=== PATIENT | female | born 1995 | race Two or more races ===

== ENCOUNTER → 2019-12-25 08:06 | Outpatient (BNVA) | payer OTHER, SELFPAY | PROVIDERS: Visit Provider Surgery | DX: E66.9 Obesity, unspecified (principal); Z68.38 Body mass index [BMI] 38.0-38.9, adult; Z71.3 Dietary counseling and surveillance | CPT/HCPCS: 99214 ==

== ENCOUNTER → 2020-02-02 07:56 | Outpatient (BNVA) | payer OTHER, SELFPAY | PROVIDERS: Visit Provider Surgery | DX: Z76.89 Persons encountering health services in other specified circumstances (principal) ==

== ENCOUNTER → 2020-03-22 08:04 | Outpatient (BNVA) | payer OTHER, SELFPAY | PROVIDERS: Visit Provider Surgery ==

== ENCOUNTER 2020-05-04 16:19 | Emergency (ER) | payer OTHER, SELFPAY ==
[2020-05-04 16:20] VITALS: BP 122/57; PULSE 69; RESP 16; TEMP 36.6; O2SAT 98; BMI 40.7
--- NOTE | 2020-05-04 19:35 | ED.FEMALEGU ---
HPI - Female Genitourinary General Chief complaint: Vaginal Bleeding Stated complaint: Vag bleed Time Seen by Provider: 05/04/20 17:28 Source: patient Mode of arrival: ambulatory Limitations: no limitations History of Present Illness HPI Narrative: 25 y/o female presenting with heavy and painful menstrual cycle that started yesterday. She reports her LMP was 1st week of April and was normal in duration and flow. She states her menses started yesterday and appeared to be normal. Today she started having much heavier bleeding and some cramping that she is not used to having with her periods. She has passed some small clots. She is changing her pad every hour today. She denies pain on one side more than the other. She denies chance of . She denies vaginal discharge, abdominal pain, fever, chills, nausea, vomiting, lightheadedness, dizziness or chest pain. She is not on oral contraceptives. MD elicited complaint: vaginal bleeding Pertinent past history: other (PCOS) Onset (ago): day(s) (1) Location of symptoms: vaginal Severity: moderate Female Urogenital Radiation: Non-Radiating Severity scale (1-10): 5 Quality of pain: cramping Consistency: intermittent Vaginal discharge: none Vaginal bleeding: heavy, clots and # pads per hour (1) Exacerbating factors: none Associated symptoms: denies other symptoms Treatment prior to arrival: none Sexual activity: Yes Patient : No Date of Last Menstrual Period: 04/02/20 Related Data Previous Rx's Medication Instructions Recorded pantoprazole 40 mg tablet,delayed 40 mg PO DAILY #30 tab 02/02/20 release norgestimate-ethinyl estradiol 1 tab PO DAILY #28 tab 05/04/20 [Sprintec (28)] Allergies Allergy/AdvReac Type Severity Reaction Status Date / Time No Known Allergies Allergy Unverified 11/16/19 19:49 [No Known Allergies*] Review of Systems Review of Systems: Constitutional: No Fever, No Chills Cardiovascular: No Chest Pain, No SOB Respiratory: No Cough, No Sputum Gastrointestinal: No Nausea, No Vomiting, No Diarrhea, No abdominal Pain Genitourinary: No Dysuria, No Urinary Frequency, No Hematuria, +vaginal bleeding Musculoskeletal: No joint pain, No Myalgias Skin: No Skin Lesions, No rash Neuro: No Weakness, No Numbness, No Dizziness, + Headache Psych: + Anxiety/Panic, No Depression Heme/Lymph: No Bruising PMFSH Past Medical History Medical History (Updated 05/04/20 @ 19:50 by TA Pollard) PCOS (polycystic ovarian syndrome) Surgical History (Updated 02/02/20 @ 10:03 by Sunil Cameron MD) History of sleeve gastrectomy Obesity Date of Last Menstrual Period: 04/02/20 Family History Family History (Updated 12/18/19 @ 11:25 by Jase [facility]) Father No problems noted. Mother Poor mental health Brother No problems noted. Sister No problems noted. Sister No problems noted. Sister No problems noted. Social History Social History (Updated 12/18/19 @ 11:37 by Jase Maria [facility]) Alcohol intake: never Smoking Status: Never smoker Advance Directives: No Advance Directives Information Provided: Yes Physical Exam Vital Signs: Vital Signs: Last Vital Signs Temp 97.8 F 05/04/20 16:20 Pulse 69 05/04/20 16:20 Resp 16 05/04/20 16:20 BP 122/57 L 05/04/20 16:20 Pulse Ox 98 05/04/20 16:20 Body Mass Index 40.7 Appearance: Alert. Oriented X3. No acute distress. Eyes: Pupils equal, round and reactive to light. ENT: Pharynx normal. Neck: Normal inspection. Neck supple. CVS: Normal heart rate and rhythm. Pulses normal. Respiratory: No respiratory distress. Breath sounds normal. Abdomen: Soft and nontender. +BS x4 Pelvic exam deferred Skin: Skin warm and dry. Normal skin color. Normal skin turgor. No rashes. Extremities: No lower extremity edema. Neuro: Oriented X 3. No motor deficit. No sensory deficit. Course Course Course Narrative: 25 y/o female presenting with heavy vaginal bleeding today in the setting of her known menses. She is not have symptoms of acute blood loss. She appears well. Will check basic blood work. She is deferring pelvic exam at this time. No concern for STI or PID. Urine is negative. Reevaluation(s) Reevaluation #1: Multiple attempts at blood draw but unsuccessful. Patient reports vaginal bleeding has slowed. She continues deny symptoms of acute blood loss anemia. Baseline hematocrit is 38. Comfortable with holding off on bloodwork and starting on OCP's for symptom management. She reports last [facility] appointment was over 1 year ago and she is due. She agrees to follow up this week. She will return to the ER if bleeding or pain worsens. Comfortable with discharge home. MDM - Female Genitourinary Differential Diagnosis Differential diagnosis: Likely dysmenorrhea Medical Records Attestation: I reviewed the patient's medical records. Lab Data Labs: Lab Results 05/04/20 05/04/20 Range/Units 20:24 20:24 Urine Color PINK Urine Appearance CLOUDY Urine pH 5.5 (5.0-8.0) Ur Specific [place] 1.025 (1.005-1.025) Urine Protein NEG (NEG-TRACE) MG/DL Urine Glucose (UA) NEG (NEG) MG/DL Urine Ketones NEG (NEG) MG/DL Urine Blood 3+ H (NEG) Urine Nitrite NEG (NEG) Ur Leukocyte Esterase NEG (NEG) Urine RBC 76-150 H (0) /HPF Urine WBC 0-2 (0-4) /HPF Ur Squamous Epith Cells 1+ /LPF Urine Bacteria TRACE /LPF Urine Test NEGATIVE (NEGATIVE) Discharge Plan Discharge Clinical Impression: Menorrhagia Qualifiers: Menorrhagia type: with regular cycle Qualified Code(s): N92.0 - Excessive and frequent menstruation with regular cycle Patient Disposition: Home, Self-Care Instructions: Menorrhagia (ED) Additional Instructions: Your test was negative. Your urine test did not show any evidence of infection. Given your history of PCOS, it is recommended you start oral contraceptive medication - this will help with your symptoms, including your bleeding. Recommend follow up with [facility] this week. Take Tylenol or Motrin as needed for cramping. If you develop worsening pain or bleeding come back to the ER for further evaluation. Prescriptions: New norgestimate-ethinyl estradiol [Sprintec (28)] 0.25-35 mg-mcg tablet 1 tab PO DAILY Qty: 28 RF: 0 No Action pantoprazole 40 mg tablet,delayed release (DR/EC) 40 mg PO DAILY Qty: 30 RF: 2 Referrals: Keven oDrman MD [Physician] - 2 days (menorrhagia)
[2020-05-04 20:00] VITALS: BP 127/69; PULSE 77; RESP 16; TEMP 36.9; O2SAT 96
[2020-05-04 20:38] LABS: Glucose Urine UA NEG (NEG); Leukocyte Esterase Urine NEG (NEG); Nitrite Urine NEG (NEG); PH 5.5 (5.0-8.0); Specific Gravity - Urine 1.025 (1.005-1.025); Urine Blood 3+ (NEG); Urine Ketones NEG (NEG); Urine Protein NEG (NEG-TRACE)
[2020-05-04 20:40] LABS: Appearance Urine CLOUDY; Color Urine PINK
[2020-05-04 20:41] LABS: UPreg QC Valid YES; Urine Pregnancy NEGATIVE (NEGATIVE)
[2020-05-04 20:49] LABS: Bacteria Urine TRACE /LPF; Squamous Epithelial Cell Urine 1+ /LPF; WBC Urine 0-2 /HPF (0-4)
== END 2020-05-04 22:07 | disposition home or self-care (01) ==
PROVIDERS: Physician Assistant; Emergency Provider Internal Medicine
DX: N92.0 Excessive and frequent menstruation with regular cycle (principal); E28.2 Polycystic ovarian syndrome; L24.9 Irritant contact dermatitis, unspecified cause
CPT/HCPCS: 81001; 81025; 99283; 99284

== ENCOUNTER 2020-10-03 18:40 | Emergency (ER) | payer OTHER, SELFPAY ==
--- NOTE | ~2020-10-03 | XR_ITS ---
EXAMINATION: XR FOOT, LEFT CLINICAL INFORMATION: Pain and swelling COMPARISON: None TECHNIQUE: AP, lateral, and oblique views of the left foot. FINDINGS: The bones and soft tissues are normal. No fracture. Alignment is anatomic. Joint spaces are maintained. XR/XR foot LT min 3V IMPRESSION: Normal left foot.
[2020-10-03 18:42] VITALS: BP 137/64; PULSE 93; RESP 16; TEMP 36.6; O2SAT 100; BMI 36.6
--- NOTE | 2020-10-03 20:18 | PC.NURSE ---
NO POST OP SHOE AVAILABLE IN PT SIZE SWITCHED TO AIMEE WRAP PER MEGHANN GURROLA.
--- NOTE | 2020-10-03 21:20 | ED.LOWEXIN ---
HPI - Extremity Injury (Lower) General Chief Complaint: Extremity Injury, Lower Stated Complaint: foot pain Time Seen by Provider: 10/03/20 19:34 Source: patient Mode of arrival: ambulatory Limitations: no limitations History of Present Illness HPI Narrative: 25-year-old female previously healthy here with complaints of left foot pains after working at the gym yesterday. Patient tells me she went to the gym yesterday and did some walking and some weightlifting. Today when she woke up she felt like her left foot was sore and swollen and she feels like she has some decreased sensation over the top of her foot. She cannot recall any specific injury. She denies any warmth, redness, fevers or chills. Related Data Previous Rx's Medication Instructions Recorded pantoprazole 40 mg tablet,delayed 40 mg PO DAILY #30 tab 02/02/20 release hydrocortisone 1 % topical cream 1 appl TOPICAL QID PRN #28.35 g 05/04/20 norgestimate 0.25 mg-ethinyl 1 tab PO DAILY #28 tab 05/04/20 estradiol 35 mcg tablet (Sprintec (28)) Allergies Allergy/AdvReac Type Severity Reaction Status Date / Time latex Allergy Rash Verified 10/03/20 18:45 Review of Systems Review of Systems: Yes all other systems are reviewed and are negative Constitutional: Constitutional: Reports no additional constitutional complaints, Denies body ache(s), Denies chills, Denies fever(s), Denies headache(s) and Denies weakness Eyes: Eyes: Reports no additional eye complaints and Denies change in vision ENT: Reports system reviewed and no additional complaints, except as documented, Denies dizziness, Denies headache(s), Denies nasal congestion, Denies nasal discharge and Denies neck pain Cardiovascular: Cardiovascular: Reports no additional cardiovascular complaints, Denies chest pain, Denies leg edema and Denies dyspnea Respiratory: Respiratory: Reports no additional respiratory complaints, Denies cough and Denies dyspnea Gastrointestinal: Gastrointestinal: Reports no additional gastrointestinal complaints, Denies abdominal pain, Denies diarrhea, Denies nausea and Denies vomiting Genitourinary: Genitourinary: Reports no additional female genitourinary complaints and Denies urinary incontinence Musculoskeletal: Musculoskeletal: Reports no additional musculoskeletal complaints, Denies back pain, Reports arthralgias, Denies joint swelling, Denies neck pain, Reports numbness and Denies tingling Integumentary/Breasts: Skin/Breast: Reports system reviewed and no additional complaints, except as docu and Denies rash Neurologic: Reports system reviewed and no additional complaints, except as documented, Denies Abnormal speech present, Denies dizziness, Denies headache(s), Reports numbness, Denies tingling and Denies weakness PMFSH Past Medical History Attestation statement: The following information was validated with the patient. Source: old records reviewed and nursing notes reviewed Medical History PCOS (polycystic ovarian syndrome) Surgical History History of sleeve gastrectomy Obesity Family History Family History Father No problems noted. Mother Poor mental health Brother No problems noted. Sister No problems noted. Sister No problems noted. Sister No problems noted. Social History Social History Alcohol intake: never Advance Directives: No Advance Directives Information Provided: No Physical Exam Vital Signs: Vital Signs: Last Vital Signs Temp 97.9 F 10/03/20 18:42 Pulse 93 10/03/20 18:42 Resp 16 10/03/20 18:42 BP 137/64 10/03/20 18:42 Pulse Ox 100 10/03/20 18:42 Body Mass Index 36.6 Const: General: cooperative, healthy appearing, comfortable and no acute distress Orientation/consciousness: patient oriented x3 Limitations: no limitations HENMT: Head: Yes normal to inspection Ears: hearing grossly normal bilaterally General nose exam: Normal external nose present Face and sinus: Yes normal facial exam Mouth: Normal oral and palatal mucosa present Throat: Yes posterior oropharynx normal Eyes: General: appearance normal, both eyes and all related structures Pupils: Equal, round and reactive pupils present Neck: Neck: Yes normal visual inspection Chest: Chest palpation & inspection: normal inspection of the chest Resp: Effort & Inspection: normal respiratory effort Auscultation: clear to auscultation bilaterally Cardio: Rate: regular rate Rhythm: regular rhythm Peripheral pulses: Peripheral pulses 2+ throughout GI: Inspection: Yes normal to inspection Palpation (GI): Soft to palpation and nontender Auscultation: normal bowel sounds Back/Spine/Pelvis: Thoracic/Lumbar Spine: thoracic and lumbar spine normal to inspection Skin: General skin exam: no rashes or lesions noted Neuro: General: patient oriented x3, no focal motor deficits and normal sensation to monofilament Cranial nerves: Yes Equal, round and reactive pupils present Cognition (Neuro): normal cognition Speech: No Abnormal speech present Gait exam (Neuro): Normal gait present Motor exam (neuro): 5/5 motor strength present throughout Extrem: Other: Over the distal dorsal foot at the base of the 2nd digit there is some mild tenderness with mild swelling but there is no warmth or redness. The patient is reporting some decreased sensation but is able to feel my hands touching her. Full range of motion. Palpable pulses. [place] warm and dry. General: Yes normal to inspection Course Course Course Narrative: Left foot pain with some associated sensation change since working out at the gym yesterday. Exam is benign with the exception of some mild swelling and discomfort over the dorsal aspect of the distal foot the base of the 2nd digit. Will check x-rays. 921-x-ray show no acute finding. Likely sprain or overuse injury. Recommended rest, ice, compression and elevation. Reviewed worrisome signs and symptoms and when to return to the emergency department. Comfortable discharge home. MDM - Extremity Injury (Lower) Medical Records Attestation: I reviewed the patient's medical records. Lab Data Attestation: I reviewed the patient's lab results. Imaging Data foot x-ray: Attestation: I personally reviewed and interpreted this imaging study as follows: Radiologist's impression: [address] [address] XRay Report Signed Patient: Giovana Medellin MR#: [id number] : 1995 Acct:[id number] Age/Sex: 25 / F ADM Date: 10/03/20 Loc: HO.ED Attending Dr: Ordering Physician: Generic ED Physician Date of Service: 10/03/20 Procedure(s): XR foot LT min 3V Accession Number(s): [id number] cc: Generic ED Physician~ EXAMINATION: XR FOOT, LEFT CLINICAL INFORMATION: Pain and swelling? COMPARISON: None? TECHNIQUE: AP, lateral, and oblique views of the left foot. FINDINGS: The bones and soft tissues are normal. No fracture. Alignment is anatomic. Joint spaces are maintained.? XR/XR foot LT min 3V IMPRESSION: Normal left foot. Procedures Procedure Narrative Procedure Narrative: A setup, crutches Discharge Plan Discharge Clinical Impression: Other sprain of left foot, initial encounter Patient Disposition: Home, Self-Care Instructions: Foot Sprain (ED), Post Surgical Shoe (ED) Additional Instructions: Ice, elevation, rest Uses shoe and crutches for comfort Follow-up with her doctor in several days for persistent pain Ibuprofen for pain as needed Prescriptions: No Action norgestimate-ethinyl estradiol [Sprintec (28)] 0.25-35 mg-mcg tablet 1 tab PO DAILY Qty: 28 RF: 0 hydrocortisone 1 % cream 1 appl topical QID PRN (Reason: itching) Qty: 28.35 RF: 0 pantoprazole 40 mg tablet,delayed release (DR/EC) 40 mg PO DAILY Qty: 30 RF: 2 Referrals: Physician,Unknown [Primary Care Provider] - 2 days Stand Alone Forms: Work/School Release Interventions: ED Discharge Assessment Last Done: 10/03/20 20:40 Discharge Date/Time: 10/03/20 20:45
== END 2020-10-03 20:43 | disposition home or self-care (01) ==
PROVIDERS: Emergency Provider Emergency Medicine
DX: S93.602A Unspecified sprain of left foot, initial encounter (principal); M79.672 Pain in left foot; X50.0XXA Overexertion from strenuous movement or load, initial encounter; Y93.9 Activity, unspecified; Y92.9 Unspecified place or not applicable; Y99.9 Unspecified external cause status; Z79.899 Other long term (current) drug therapy
CPT/HCPCS: 73630; 99284

== ENCOUNTER → 2021-04-08 08:47 | Outpatient (BNVA) | payer OTHER, SELFPAY | PROVIDERS: Referring Provider Surgery; Visit Provider Physician Assistant Surgical ==

== ENCOUNTER 2021-06-13 06:27 | Outpatient (REF) | payer OTHER, SELFPAY ==
[2021-06-13 07:16] LABS: MANUAL DIFF FLAG NO
[2021-06-13 07:29] LABS: Basophils Absolute Auto 0.1 X10*3/uL (0.0-0.2); Basophils Percent Auto 0.7 % (0-2); Eosinophils Absolute Auto 0.2 X10*3/uL (0.0-0.4); Eosinophils Percent Auto 3.2 % (0-4); Hematocrit 36.7 % (37.0-47.0); Hemoglobin 12.1 g/dl (12.0-16.0); Imm Gran Abs Auto 0.03 X10*3/uL (0.00-0.03); Imm Gran Pct Auto 0.4 % (0.0-0.4); Lymphocytes Absolute Auto 1.8 X10*3/uL (1.2-4.9); Lymphocytes Percent Auto 23.6 % (20-40); Mean Corpuscular Hemoglobin 29.7 pg (27.0-33.0); Mean Platelet Volume 9.4 fL (9.4-12.3); Monocytes Absolute Auto 0.6 X10*3/uL (0.1-1.2); Monocytes Percent Auto 7.7 % (2-11); Neutrophils Absolute Auto 4.8 x10*3/uL (2.0-8.3); Neutrophils Percent Auto 64.4 % (45-73); Platelet Count 315 X10*3/uL (160-400); Red Blood Count 4.08 X10*6/uL (4.20-5.50); Red Cell Distribution Width 12.3 % (11.0-16.0); White Blood Count 7.5 X10*3/uL (4.8-10.8)
[2021-06-13 07:54] LABS: Estimated Average Glucose 100 mg/dL; Hemoglobin A1c % 5.1 %
[2021-06-13 07:58] LABS: Anion Gap 12 (12-20); Blood Urea Nitrogen 14 mg/dL (9-16); C Reactive Protein 0.26 mg/dL (< or = 0.50); Calcium 9.5 mg/dL (8.4-10.2); Carbon Dioxide 26 mmol/L (22-29); Chloride 104 mmol/L (96-108); Cholesterol 172 mg/dL; Estimated Glomerular Filt Rate > 60; Glucose Random 89 mg/dL (60-115); HDL Cholesterol 37 mg/dL; Iron 122 mcg/dL (30-160); LDL Cholesterol Calculated 111 mg/dl; Percent Iron Saturation 34 % (15-50); Potassium 4.3 mmol/L (3.3-5.1); Sodium 138 mmol/L (135-145); Total Iron Binding Capacity 364 mcg/dL (228-428); Triglycerides 122 mg/dL; Unsaturated Iron Binding 242 ug/dL
[2021-06-13 08:08] LABS: Ferritin 29 ng/mL (10-122); TSH reflex Free T4 1.54 uIU/mL (0.32-4.0); Vitamin D 25-OH Total 14.6 ng/mL (>30)
[2021-06-13 08:26] LABS: Folate 15.5 ng/mL (> or = 4.0); Vitamin B12 422 pg/mL (200-900)
[2021-06-16 13:56] LABS: Calcium (PTHI) 9.4 mg/dL (8.6-10.2); PTHI 62 pg/mL (16-77)
[2021-06-17 16:06] LABS: Zinc 73 mcg/dL (60-130)
[2021-06-18 08:56] LABS: Vitamin A 44 mcg/dL (38-98)
[2021-06-19 17:16] LABS: Vitamin B1 12 nmol/L (8-30)
== END 2021-06-13 06:28 | disposition home or self-care (01) ==
LOC: HO.LAB 06:27
PROVIDERS: PCP Internal Medicine; Visit Provider Physician Assistant Surgical
DX: E66.9 Obesity, unspecified (principal)
CPT/HCPCS: 36415; 80048; 80061; 82306; 82607; 82728; 82746; 83036; 83540; 83970; 84425; 84443; 84590; 84630; 85025; 86140

== ENCOUNTER → 2021-06-24 08:05 | Outpatient (BNVA) | payer OTHER, SELFPAY | PROVIDERS: Visit Provider Physician Assistant Surgical | DX: Z13.89 Encounter for screening for other disorder (principal) ==

== ENCOUNTER 2022-06-22 18:37 | Emergency (ER) | payer OTHER, SELFPAY ==
--- NOTE | ~2022-06-22 | US_ITS ---
EXAMINATION: US OBSTETRICAL ULTRASOUND CLINICAL INFORMATION: 6 weeks gestation. Vaginal spotting. Lower abdominal pain. COMPARISON: None available.. LMP: 10/13/2022. Gestational age by maternal dates is 5 weeks 5 days. Estimated date of delivery by maternal dates is 02/17/2023. TECHNIQUE: Ultrasound of the maternal pelvis is performed using transabdominal and transvaginal transducers. Transvaginal imaging is performed due to inadequate visualization transabdominally. M-mode Doppler is also performed. FINDINGS: There is a single intrauterine gestational sac without yolk sac or pole identified.. There is no significant subchorionic hemorrhage or hematoma. Mean sac diameter: 0.39 cm (4 weeks 6 days). MATERNAL ADNEXA: The right maternal ovary measures 5.2 x 2.8 x 3.1 cm. 1.8 cm corpus luteum noted. The left maternal ovary measures 2.2 x 2.1 x 2.3 cm. There is no significant maternal adnexal mass. No maternal pelvic ascites. US/US OB pelvic and transvaginal IMPRESSION: Intrauterine gestational sac measuring at 4 weeks 6 days gestation. No yolk sac or pole identified. This could be secondary to the early stage of . Close follow-up recommended. No ectopic identified.
[2022-06-22 19:45] VITALS: BP 143/72; PULSE 91; RESP 20; TEMP 36.6; O2SAT 99; BMI 25.8
--- NOTE | 2022-06-22 19:46 | ED_ITS ---
HPI - Female Genitourinary General Chief complaint: OB <TA Lockhart - Last Filed: 06/22/22 19:50> Stated complaint: vaginal spotting,cramping <TA Lockhart - Last Filed: 06/22/22 19:50> Time Seen by Provider: 06/23/22 00:41 <TA Lockhart - Last Filed: 06/22/22 19:50> Source: patient <Álvaro Lopez MD - Last Filed: 06/23/22 01:58> Mode of arrival: ambulatory <Álvaro Lopez MD - Last Filed: 06/23/22 01:58> Limitations: no limitations <Álvaro Lopez MD - Last Filed: 06/23/22 01:58> History of Present Illness HPI Narrative: Patient thinks she is 5 weeks , LMP 3/15. Today she has been spotting and having some pain. G2 1 miscarriage. <Álvaro Lopez MD - Last Filed: 06/23/22 01:58> MD elicited complaint: vaginal bleeding <Álvaro Lopez MD - Last Filed: 06/23/22 01:58> Severity: mild <Álvaro Lopez MD - Last Filed: 06/23/22 01:58> Related Data Home medications: Home Medications Medication Instructions Recorded Confirmed Celebrate Walt+D PO BID 06/24/21 06/24/21 celebrate bariatric MVI PO DAILY 06/24/21 06/24/21 <TA Lockhart - Last Filed: 06/22/22 19:50> Allergies/Adverse reactions: Allergies Allergy/AdvReac Type Severity Reaction Status Date / Time latex Allergy Rash Verified 10/03/20 18:45 <TA Lockhart - Last Filed: 06/22/22 19:50> Review of Systems Review of Systems: Yes all other systems are reviewed and are negative <Álvaro Lopez MD - Last Filed: 06/23/22 01:58> Genitourinary: Genitourinary: Reports abnormal vaginal bleeding <Álvaro Lopez MD - Last Filed: 06/23/22 01:58> Neurologic: Denies Sensory deficit (Neuro) <Álvaro Lopez MD - Last Filed: 06/23/22 01:58> [facility] Past Medical History Medical History: Medical History PCOS (polycystic ovarian syndrome) <TA Lockhart - Last Filed: 06/22/22 19:50> Surgical History: Surgical History History of sleeve gastrectomy Obesity <TA Lockhart - Last Filed: 06/22/22 19:50> Family History Family History: Family History Father No problems noted. Mother Poor mental health Brother No problems noted. Sister No problems noted. Sister No problems noted. Sister No problems noted. <TA Lockhart - Last Filed: 06/22/22 19:50> Social History Social History: Social History Alcohol intake: never Advance Directives: No Advance Directives Information Provided: Yes <TA Lockhart - Last Filed: 06/22/22 19:50> Physical Exam Vital Signs: Vital Signs: Last Vital Signs Temp 97.8 F 06/22/22 19:45 Pulse 91 06/22/22 19:45 Resp 20 06/22/22 19:45 BP 143/72 H 06/22/22 19:45 Pulse Ox 99 06/22/22 19:45 O2 Del Method Room Air 06/22/22 19:45 BMI result Body Mass Index 25.8 <TA Lockhart - Last Filed: 06/22/22 19:50> Vital Signs: Last Vital Signs Temp 97.8 F 06/22/22 19:45 Pulse 91 06/22/22 19:45 Resp 20 06/22/22 19:45 BP 143/72 H 06/22/22 19:45 Pulse Ox 99 06/22/22 19:45 O2 Del Method Room Air 06/22/22 19:45 BMI result Body Mass Index 25.8 <Álvaro Lopez MD - Last Filed: 06/23/22 01:58> Const: Nutritional Appearance: obese <Álvaro Lopez MD - Last Filed: 06/23/22 01:58> Orientation/consciousness: oriented to person and patient oriented x3 <Álvaro Lopez MD - Last Filed: 06/23/22 01:58> Limitations: no limitations <Álvaro Lopez MD - Last Filed: 06/23/22 01:58> HEENT: Head: Yes normal to inspection <Álvaro Lopez MD - Last Filed: 06/23/22 01:58> Ears: external ears normal <Álvaro Lopez MD - Last Filed: 06/23/22 01:58> General nose exam: Normal external nose present <Álvaro Lopez MD - Last Filed: 06/23/22 01:58> Mouth: Normal oral and palatal mucosa present and oropharynx normal <Álvaro Lopez MD - Last Filed: 06/23/22 01:58> Throat: Yes posterior oropharynx normal <Álvaro Lopez MD - Last Filed: 06/23/22 01:58> Eyes: General: appearance normal, both eyes and all related structures <Álvaro Lopez MD - Last Filed: 06/23/22 01:58> Neck: Other: supple <Álvaro Lopez MD - Last Filed: 06/23/22 01:58> Neck: Yes normal visual inspection <Álvaro Lopez MD - Last Filed: 06/23/22 01:58> Chest: Chest palpation & inspection: normal inspection of the chest <Álvaro Lopez MD - Last Filed: 06/23/22 01:58> Resp: Auscultation: clear to auscultation bilaterally <Álvaro Lopez MD - Last Filed: 06/23/22 01:58> Cardio: Jugular venous distension: no JVD <Álvaro Lopez MD - Last Filed: 06/23/22 01:58> Rate: regular rate <Álvaro Lopez MD - Last Filed: 06/23/22 01:58> Rhythm: regular rhythm <MD Rangel Humphrey Last Filed: 06/23/22 01:58> Heart sounds: S1 normal heart sound present and S2 normal heart sound present <MD Rangel Humphrey Last Filed: 06/23/22 01:58> GI: Inspection: Yes normal to inspection <Álvaro Lopez MD - Last Filed: 06/23/22 01:58> Palpation (GI): Soft to palpation, nontender and No hepatosplenomegaly present <Álvaro Lopez MD - Last Filed: 06/23/22 01:58> Auscultation: normal bowel sounds <Álvaro Lopez MD - Last Filed: 06/23/22 01:58> : General: Yes no CVA tenderness <Álvaro Lopez MD - Last Filed: 06/23/22 01:58> Back/Spine/Pelvis: Back: no CVA tenderness <Álvaro Lopez MD - Last Filed: 06/23/22 01:58> Skin: General skin exam: no rashes or lesions noted <Álvaro Lopez MD - Last Filed: 06/23/22 01:58> Neuro: General: oriented to person and patient oriented x3 <Álvaro Lopez MD - Last Filed: 06/23/22 01:58> Cranial nerves: Yes CN's II-XII intact bilaterally <Álvaro Lopez MD - Last Filed: 06/23/22 01:58> Motor exam (neuro): 5/5 motor strength present throughout <Álvaro Lopez MD - Last Filed: 06/23/22 01:58> Sensory Exam: No Sensory deficit (Neuro) <Álvaro Lopez MD - Last Filed: 06/23/22 01:58> Extrem: General: Yes normal to inspection <Álvaro Lopez MD - Last Filed: 06/23/22 01:58> Psych: Appearance: grossly normal <Álvaro Lopez MD - Last Filed: 06/23/22 01:58> Course Course Course Narrative: RME: 27yo F w/PMHx PCOS, @6 weeks gestation, c/o lower abdominal cramping, nausea & brown spotting when wiping since this morning. LMP 05/13/22. denies vomiting, dysuria Labs, UA, ABO, Pelvic US ordered Full HPI, ROS and PE to be performed by primary ED provider. <TA Lockhart - Last Filed: 06/22/22 19:50> Reevaluation(s) Reevaluation #1: patient has had BHCG quant that has been doubling appropriately and an early IUP. will discharge with threatened <Álvaro Lopez MD - Last Filed: 06/23/22 01:58> Time: 01:55 <Álvaro Lopez MD - Last Filed: 06/23/22 01:58> Medical Decision Making Differential Diagnosis Differential Diagnoses: The differential diagnosis associated with the presentation includes (, miscarriage, ectopic , uti were all considered) <Álvaro Lopez MD - Last Filed: 06/23/22 01:58> Admission/Observation Consideration of admission/observation: Escalation of care including admission/observation considered (Early pr egnancy with pain and spotting admission was considered if patient had ectopic ) <Álvaro Lopez MD - Last Filed: 06/23/22 01:58> Lab Data MDM Lab Attestation statement: I reviewed the patient's lab results. <Álvaro Lopez MD - Last Filed: 06/23/22 01:58> Result Diagrams: 06/22/22 22:08 06/22/22 22:08 <TA Lockhart - Last Filed: 06/22/22 19:50> Labs: Lab Results 06/22/22 06/22/22 06/22/22 Range/Units 21:59 22:08 22:08 WBC 14.0 H (4.8-10.8) X10*3/uL RBC 4.38 (4.20-5.50) X10*6/uL Hgb 13.3 (12.0-16.0) g/dl Hct 38.9 (37.0-47.0) % MCV 88.8 (80.0-98.0) fL MCH 30.4 (27.0-33.0) pg MCHC 34.2 (31.0-35.0) g/dl RDW 12.7 (11.0-16.0) % Plt Count 349 (160-400) X10*3/uL MPV 8.8 L (9.4-12.3) fL Immature Gran % (Auto) 0.6 H (0.0-0.4) % Neut % (Auto) 72.4 (45-73) % Lymph % (Auto) 17.6 L (20-40) % [place] % (Auto) 7.4 (2-11) % Eos % (Auto) 1.5 (0-4) % Baso % (Auto) 0.5 (0-2) % Lymph # (Auto) 2.5 (1.2-4.9) X10*3/uL [place] # (Auto) 1.0 (0.1-1.2) X10*3/uL Eos # (Auto) 0.2 (0.0-0.4) X10*3/uL Baso # (Auto) 0.1 (0.0-0.2) X10*3/uL Abs Immat Gran (auto) 0.08 H (0.00-0.03) X10*3/uL Absolute Neuts (auto) 10.1 H (2.0-8.3) x10*3/uL Absolute Nucleated RBC 0.000 (0.0-0.012) X10*3/uL Nucleated RBC % (auto) 0.0 (0.0-0.2) /100WBC Sodium 139 (135-145) mmol/L Potassium 4.5 (3.3-5.1) mmol/L Chloride 109 H (96-108) mmol/L Carbon Dioxide 23 (22-29) mmol/L Anion Gap 12 (12-20) BUN 12 (9-16) mg/dL Creatinine 0.71 (0.5-1.4) mg/dL Estim Creat Clear Calc 125.6 Estimated GFR > 60 Random Glucose 82 (60-115) mg/dL Calcium 9.3 (8.4-10.2) mg/dL Total Bilirubin 0.2 (0.0-1.0) mg/dL Direct Bilirubin < 0.2 (0.0-0.5) mg/dL AST 21 (5-31) U/L ALT 33 H (0-31) U/L Alkaline Phosphatase 43 (39-117) U/L Total Protein 7.0 (6.5-8.0) g/dL Albumin 4.5 (3.5-5.0) g/dL Lipase 34 (8-78) U/L Beta HCG, Quant 1624 mIU/mL Urine Color Urine Appearance Urine pH (5.0-9.0) Ur Specific [place] (1.005-1.025) Urine Protein (Neg-Trace) mg/dL Urine Glucose (UA) (Negative) mg/dL Urine Ketones (Negative) mg/dL Urine Blood (Negative) Urine Nitrite (Negative) Ur Leukocyte Esterase (Negative) Blood Type A Positive 06/23/22 Range/Units 01:41 WBC (4.8-10.8) X10*3/uL RBC (4.20-5.50) X10*6/uL Hgb (12.0-16.0) g/dl Hct (37.0-47.0) % MCV (80.0-98.0) fL MCH (27.0-33.0) pg MCHC (31.0-35.0) g/dl RDW (11.0-16.0) % Plt Count (160-400) X10*3/uL MPV (9.4-12.3) fL Immature Gran % (Auto) (0.0-0.4) % Neut % (Auto) (45-73) % Lymph % (Auto) (20-40) % [place] % (Auto) (2-11) % Eos % (Auto) (0-4) % Baso % (Auto) (0-2) % Lymph # (Auto) (1.2-4.9) X10*3/uL [place] # (Auto) (0.1-1.2) X10*3/uL Eos # (Auto) (0.0-0.4) X10*3/uL Baso # (Auto) (0.0-0.2) X10*3/uL Abs Immat Gran (auto) (0.00-0.03) X10*3/uL Absolute Neuts (auto) (2.0-8.3) x10*3/uL Absolute Nucleated RBC (0.0-0.012) X10*3/uL Nucleated RBC % (auto) (0.0-0.2) /100WBC Sodium (135-145) mmol/L Potassium (3.3-5.1) mmol/L Chloride (96-108) mmol/L Carbon Dioxide (22-29) mmol/L Anion Gap (12-20) BUN (9-16) mg/dL Creatinine (0.5-1.4) mg/dL Estim Creat Clear Calc Estimated GFR Random Glucose (60-115) mg/dL Calcium (8.4-10.2) mg/dL Total Bilirubin (0.0-1.0) mg/dL Direct Bilirubin (0.0-0.5) mg/dL AST (5-31) U/L ALT (0-31) U/L Alkaline Phosphatase (39-117) U/L Total Protein (6.5-8.0) g/dL Albumin (3.5-5.0) g/dL Lipase (8-78) U/L Beta HCG, Quant mIU/mL Urine Color Yellow Urine Appearance Clear Urine pH 5.5 (5.0-9.0) Ur Specific [place] >= 1.030 H (1.005-1.025) Urine Protein Negative (Neg-Trace) mg/dL Urine Glucose (UA) Negative (Negative) mg/dL Urine Ketones Trace (Negative) mg/dL Urine Blood Trace H (Negative) Urine Nitrite Negative (Negative) Ur Leukocyte Esterase Negative (Negative) Blood Type <TA Lockhart - Last Filed: 06/22/22 19:50> Lab Results 06/22/22 06/22/22 06/22/22 Range/Units 21:59 22:08 22:08 WBC 14.0 H (4.8-10.8) X10*3/uL RBC 4.38 (4.20-5.50) X10*6/uL Hgb 13.3 (12.0-16.0) g/dl Hct 38.9 (37.0-47.0) % MCV 88.8 (80.0-98.0) fL MCH 30.4 (27.0-33.0) pg MCHC 34.2 (31.0-35.0) g/dl RDW 12.7 (11.0-16.0) % Plt Count 349 (160-400) X10*3/uL MPV 8.8 L (9.4-12.3) fL Immature Gran % (Auto) 0.6 H (0.0-0.4) % Neut % (Auto) 72.4 (45-73) % Lymph % (Auto) 17.6 L (20-40) % [place] % (Auto) 7.4 (2-11) % Eos % (Auto) 1.5 (0-4) % Baso % (Auto) 0.5 (0-2) % Lymph # (Auto) 2.5 (1.2-4.9) X10*3/uL [place] # (Auto) 1.0 (0.1-1.2) X10*3/uL Eos # (Auto) 0.2 (0.0-0.4) X10*3/uL Baso # (Auto) 0.1 (0.0-0.2) X10*3/uL Abs Immat Gran (auto) 0.08 H (0.00-0.03) X10*3/uL Absolute Neuts (auto) 10.1 H (2.0-8.3) x10*3/uL Absolute Nucleated RBC 0.000 (0.0-0.012) X10*3/uL Nucleated RBC % (auto) 0.0 (0.0-0.2) /100WBC Sodium 139 (135-145) mmol/L Potassium 4.5 (3.3-5.1) mmol/L Chloride 109 H (96-108) mmol/L Carbon Dioxide 23 (22-29) mmol/L Anion Gap 12 (12-20) BUN 12 (9-16) mg/dL Creatinine 0.71 (0.5-1.4) mg/dL Estim Creat Clear Calc 125.6 Estimated GFR > 60 Random Glucose 82 (60-115) mg/dL Calcium 9.3 (8.4-10.2) mg/dL Total Bilirubin 0.2 (0.0-1.0) mg/dL Direct Bilirubin < 0.2 (0.0-0.5) mg/dL AST 21 (5-31) U/L ALT 33 H (0-31) U/L Alkaline Phosphatase 43 (39-117) U/L Total Protein 7.0 (6.5-8.0) g/dL Albumin 4.5 (3.5-5.0) g/dL Lipase 34 (8-78) U/L Beta HCG, Quant 1624 mIU/mL Urine Color Urine Appearance Urine pH (5.0-9.0) Ur Specific [place] (1.005-1.025) Urine Protein (Neg-Trace) mg/dL Urine Glucose (UA) (Negative) mg/dL Urine Ketones (Negative) mg/dL Urine Blood (Negative) Urine Nitrite (Negative) Ur Leukocyte Esterase (Negative) Blood Type A Positive 06/23/22 Range/Units 01:41 WBC (4.8-10.8) X10*3/uL RBC (4.20-5.50) X10*6/uL Hgb (12.0-16.0) g/dl Hct (37.0-47.0) % MCV (80.0-98.0) fL MCH (27.0-33.0) pg MCHC (31.0-35.0) g/dl RDW (11.0-16.0) % Plt Count (160-400) X10*3/uL MPV (9.4-12.3) fL Immature Gran % (Auto) (0.0-0.4) % Neut % (Auto) (45-73) % Lymph % (Auto) (20-40) % [place] % (Auto) (2-11) % Eos % (Auto) (0-4) % Baso % (Auto) (0-2) % Lymph # (Auto) (1.2-4.9) X10*3/uL [place] # (Auto) (0.1-1.2) X10*3/uL Eos # (Auto) (0.0-0.4) X10*3/uL Baso # (Auto) (0.0-0.2) X10*3/uL Abs Immat Gran (auto) (0.00-0.03) X10*3/uL Absolute Neuts (auto) (2.0-8.3) x10*3/uL Absolute Nucleated RBC (0.0-0.012) X10*3/uL Nucleated RBC % (auto) (0.0-0.2) /100WBC Sodium (135-145) mmol/L Potassium (3.3-5.1) mmol/L Chloride (96-108) mmol/L Carbon Dioxide (22-29) mmol/L Anion Gap (12-20) BUN (9-16) mg/dL Creatinine (0.5-1.4) mg/dL Estim Creat Clear Calc Estimated GFR Random Glucose (60-115) mg/dL Calcium (8.4-10.2) mg/dL Total Bilirubin (0.0-1.0) mg/dL Direct Bilirubin (0.0-0.5) mg/dL AST (5-31) U/L ALT (0-31) U/L Alkaline Phosphatase (39-117) U/L Total Protein (6.5-8.0) g/dL Albumin (3.5-5.0) g/dL Lipase (8-78) U/L Beta HCG, Quant mIU/mL Urine Color Yellow Urine Appearance Clear Urine pH 5.5 (5.0-9.0) Ur Specific [place] >= 1.030 H (1.005-1.025) Urine Protein Negative (Neg-Trace) mg/dL Urine Glucose (UA) Negative (Negative) mg/dL Urine Ketones Trace (Negative) mg/dL Urine Blood Trace H (Negative) Urine Nitrite Negative (Negative) Ur Leukocyte Esterase Negative (Negative) Blood Type <Álvaro Lopez MD - Last Filed: 06/23/22 01:58> Radiology Impression Discussion of test interpretation with radiology: I have reviewed the radiologist's reading. (IUP) <Álvaro Lopez MD - Last Filed: 06/23/22 01:58> Independent Historian Clinical information obtained from an independent historian. History obtained from or confirmed by: Spouse <Álvaro Lopez MD - Last Filed: 06/23/22 01:58> Discharge Plan Discharge Clinical Impression: Threatened <TA Lockhart - Last Filed: 06/22/22 19:50> Patient Disposition: Home, Self-Care <TA Lockhart - Last Filed: 06/22/22 19:50> Instructions: Threatened Miscarriage (ED) <TA Lockhart - Last Filed: 06/22/22 19:50> Prescriptions: No Action celebrate bariatric MVI PO DAILY Celebrate Walt+D PO BID <TA Lockhart - Last Filed: 06/22/22 19:50> Referrals: Physician,Unknown J [Primary Care Provider] - 1 week <TA Lockhart - Last Filed: 06/22/22 19:50>
[2022-06-22 22:12] LABS: MANUAL DIFF FLAG NO
[2022-06-22 22:13] LABS: Basophils Absolute Auto 0.1 X10*3/uL (0.0-0.2); Basophils Percent Auto 0.5 % (0-2); Eosinophils Absolute Auto 0.2 X10*3/uL (0.0-0.4); Eosinophils Percent Auto 1.5 % (0-4); Hematocrit 38.9 % (37.0-47.0); Hemoglobin 13.3 g/dl (12.0-16.0); Imm Gran Abs Auto 0.08 X10*3/uL (0.00-0.03); Imm Gran Pct Auto 0.6 % (0.0-0.4); Lymphocytes Absolute Auto 2.5 X10*3/uL (1.2-4.9); Lymphocytes Percent Auto 17.6 % (20-40); Mean Corpuscular HGB Conc 34.2 g/dl (31.0-35.0); Mean Corpuscular Hemoglobin 30.4 pg (27.0-33.0); Mean Corpuscular Volume 88.8 fL (80.0-98.0); Mean Platelet Volume 8.8 fL (9.4-12.3); Monocytes Percent Auto 7.4 % (2-11); Neutrophils Absolute Auto 10.1 x10*3/uL (2.0-8.3); Neutrophils Percent Auto 72.4 % (45-73); Platelet Count 349 X10*3/uL (160-400); Red Blood Count 4.38 X10*6/uL (4.20-5.50); Red Cell Distribution Width 12.7 % (11.0-16.0)
[2022-06-22 22:36] LABS: HCG Quantitative 1624 mIU/mL
[2022-06-22 22:41] LABS: Alanine Aminotransferase 33 U/L (0-31); Albumin Level 4.5 g/dL (3.5-5.0); Alkaline Phosphatase 43 U/L (39-117); Anion Gap 12 (12-20); Aspartate Amino Transferase 21 U/L (5-31); Bilirubin Direct < 0.2 mg/dL (0.0-0.5); Bilirubin Total 0.2 mg/dL (0.0-1.0); Blood Urea Nitrogen 12 mg/dL (9-16); Calcium 9.3 mg/dL (8.4-10.2); Carbon Dioxide 23 mmol/L (22-29); Chloride 109 mmol/L (96-108); Creatinine Clr Calc Pharmacy 125.6; Estimated Glomerular Filt Rate > 60; Glucose Random 82 mg/dL (60-115); Lipase 34 U/L (8-78); Potassium 4.5 mmol/L (3.3-5.1); Sodium 139 mmol/L (135-145)
[2022-06-23 01:51] LABS: Appearance Urine Clear; Color Urine Yellow; Glucose Urine UA Negative (Negative); Leukocyte Esterase Urine Negative (Negative); Nitrite Urine Negative (Negative); PH 5.5 (5.0-9.0); Specific Gravity - Urine >= 1.030 (1.005-1.025); UMIC TRIGGER UACC YES; Urine Blood Trace (Negative); Urine Ketones Trace mg/dL (Negative); Urine Protein Negative (Neg-Trace)
[2022-06-23 02:08] LABS: Bacteria Urine None Seen (None Seen); Calcium Oxalate Crystals Urine Present; Hyaline Casts Urine 0-2 /LPF (0-2); RBC Urine 0-2 /HPF (0-2); WBC Urine 0-5 /HPF (0-5)
[2022-06-23 02:17] VITALS: BP 152/76; PULSE 84; RESP 12; O2SAT 98
== END 2022-06-23 02:19 | disposition home or self-care (01) ==
PROVIDERS: Physician Assistant; Emergency Provider Emergency Medicine
DX: O20.0 Threatened abortion (principal); O26.851 Spotting complicating pregnancy, first trimester; Z3A.01 Less than 8 weeks gestation of pregnancy
CPT/HCPCS: 36415; 76801; 76817; 80048; 80076; 81001; 83690; 84702; 85025; 86900; 86901; 99283; 99284

== ENCOUNTER 2022-08-11 18:43 | Emergency (ER) | payer OTHER, SELFPAY ==
--- NOTE | 2022-08-11 19:40 | ED.GENADULT ---
HPI - General Adult General Chief complaint: Headache Stated complaint: , pain on r side. L eye/ head pressure Time Seen by Provider: 08/11/22 21:32 Source: patient Mode of arrival: ambulatory Limitations: no limitations History of Present Illness HPI narrative: Patient is a 27-year-old female with history of PCOS and sleeve gastrectomy, presenting with complaint of headache, pain behind left eye, and right thigh numbness. Patient states headache was not worst at onset, began last night. Rates at 6-7/10. Used Tylenol with little relief. Denies blurred vision, double vision or other vision changes. She also complains of nausea and vomiting since beginning of . She has been prescribed B vitamins by her WAREHOUSE PRICING AND INVENTORY CLERK but states has not improved her symptoms. She states her right thigh numbness is affecting anterior and lateral aspect and extends from hip to knee. Denies back pain. She has had the numbness for 2 years but states has worsened over the past several days. Denies any saddle anesthesia or bowel/bladder incontinence, denies any dysuria or other urinary symptoms. Denies any vaginal bleeding or abnormal vaginal discharge. MD complaint: headache Onset (ago): day(s) Radiation: other (left eye) Severity: moderate Severity scale (1-10): 6 Pain Consistency: constant Relieving factors: none Related Data Home Medications Medication Instructions Recorded Confirmed Celebrate Walt+D PO BID 06/24/21 06/24/21 celebrate bariatric MVI PO DAILY 06/24/21 06/24/21 Previous Rx's Medication Instructions Recorded cephalexin 500 mg capsule 500 mg PO QID 7 days #28 caps 08/12/22 Allergies Allergy/AdvReac Type Severity Reaction Status Date / Time latex Allergy Rash Verified 10/03/20 18:45 Review of Systems Review of Systems: As per HPI. Yes all other systems are reviewed and are negative Constitutional: Constitutional: Reports headache(s) and Reports poor appetite Eyes: Eyes: Reports as per HPI and Reports no additional eye complaints ENT: Reports system reviewed and no additional complaints, except as documented and Reports headache(s) Cardiovascular: Cardiovascular: Reports as per HPI and Reports no additional cardiovascular complaints Respiratory: Respiratory: Reports as per HPI and Reports no additional respiratory complaints Gastrointestinal: Gastrointestinal: Denies abdominal pain, Denies melena, Denies coffee ground emesis, Denies GI cramping, Reports nausea, Reports vomiting and Denies hematemesis Genitourinary: Genitourinary: Reports no additional female genitourinary complaints Musculoskeletal: Musculoskeletal: Reports no additional musculoskeletal complaints Integumentary/Breasts: Skin/Breast: Reports system reviewed and no additional complaints, except as docu Neurologic: Reports system reviewed and no additional complaints, except as documented and Reports headache(s) [facility] Past Medical History Medical History PCOS (polycystic ovarian syndrome) Surgical History History of sleeve gastrectomy Obesity Family History Family History Father No problems noted. Mother Poor mental health Brother No problems noted. Sister No problems noted. Sister No problems noted. Sister No problems noted. Social History Social History Alcohol intake: never Smoked in Last 30 Days: No Use of substances other than those prescribed or required for medical reasons: No Advance Directives: No Advance Directives Information Provided: No Physical Exam ED Vital Signs: Vital Signs - 24 hr 08/11/22 19:43 08/12/22 00:12 Temperature 98.0 F 99.1 F Pulse Rate 71 81 Respiratory Rate 16 16 Blood Pressure 125/68 118/67 Pulse Oximetry 99 100 Oxygen Delivery Method Room Air Room Air BMI result Body Mass Index 41.1 Vital signs have been reviewed and appear to be correct. Blood pressure normal. Heart rate normal. Respiratory rate normal. Temperature normal. Oxygen saturation normal. Const General: cooperative, healthy appearing and no acute distress Orientation/consciousness: oriented to person, oriented to place, oriented to time and patient oriented x3 Limitations: no limitations HENMT Head: Yes normocephalic and Yes atraumatic Ears: external ears normal General nose exam: Normal external nose present Face and sinus: Yes face symmetric Mouth: oropharynx normal and moist mucous membranes Throat: Yes uvula midline Eyes Pupils: Equal, round and reactive pupils present Neck Neck: Yes normal visual inspection and Yes supple Resp Effort & Inspection: normal respiratory effort and able to speak in complete sentences Auscultation: clear to auscultation bilaterally Cardio Rate: regular rate Rhythm: regular rhythm Heart sounds: S1 normal heart sound present and S2 normal heart sound present GI Palpation (GI): Soft to palpation and nontender Auscultation: normoactive bowel sounds General: Yes no CVA tenderness Back/Spine/Pelvis Back: no CVA tenderness Skin General skin exam: elasticity normal and turgor normal Neuro General: oriented to person, oriented to place, oriented to time, patient oriented x3, tone normal, moves all extremities, no focal motor deficits and CN's II-XI intact bilaterally Cranial nerves: Yes Equal, round and reactive pupils present Cognition (Neuro): normal cognition Motor exam (neuro): 5/5 motor strength present throughout and Normal motor muscle tone present throughout Sensory Exam: Normal double simultaneous stimulation for sensation Extrem General: Yes full ROM, Yes no pedal edema and Yes no calf tenderness Right lower extremity: normal to inspection, full ROM and hip/thigh Details: normal to inspection and normal ROM; no tenderness and no swelling Psych Mental Status: mental status grossly normal Affect: normal affect Thought process: Normal thought process present Course Course Course Narrative: RME: 27yo F @12 weeks gestation c/o HORTON since last night (not maximal at onset), L eye pressure, numbness in R thigh x years worsening today, nausea, vomiting and decreased PO intake. denies vaginal bleeding/d/c or abdominal pain abdomen soft nontender, VSS Labs, UA ordered Full HPI, ROS and PE to be performed by primary ED provider. Medications Administered Discontinued Medications Generic Name Dose Route Start Last Admin Trade Name Freq PRN Reason Stop Dose Admin Diphenhydramine HCl 25 mg 08/11/22 22:29 08/11/22 23:04 Diphenhydramine Hcl 50 Mg/Ml Vial IVPUSH 08/11/22 22:30 25 mg ONCE ONE Administration Sodium Chloride 1,000 mls @ 999 mls/hr 08/11/22 22:30 08/12/22 00:09 Ns IV 08/11/22 23:30 Infused .Q1H1M ROLAND Infusion Metoclopramide HCl 10 mg 08/11/22 22:29 08/11/22 23:04 Metoclopramide Hcl 10 Mg/2 Ml Vial IVPUSH 08/11/22 22:30 10 mg ONCE ONE Administration Medical Decision Making Medical Decision Making MDM Narrative: Patient is a 27-year-old female with history of PCOS and sleeve gastrectomy, presenting with complaint of headache, pain behind left eye, and right thigh numbness. On exam patient is awake, A+Ox3, normal neurological exam without focal deficits, abdomen soft, nontender, no thoracic or lumbar tenderness. Labs and UA unremarkable. No headache red flags. Likely migraine versus tension headache. Considered preeclampsia but unlikely given patient is 12 weeks gestation, is not hypertensive, no new significant elevation of LFTs, no proteinuria. Presentation not consistent with ICH/SAH, meningitis, encephalitis/brain abscess, temporal arteritis, acute angle closure glaucoma, pseudotumor cerebrii. Plan: pain management, reassess 01:21 Patient reports improvement of headache after metoclopramide, diphenhydramine, and IV fluids. UA positive for leukocytes and bacteria, will treat will cephalexin as patient is . Instructed patient to follow up with WAREHOUSE [employer]ICING AND INVENTORY CLERK. Return precautions discussed at bedside. Patient verbalized understanding of and agreement with plan. Differential Diagnosis Differential Diagnoses: The differential diagnosis associated with the presentation includes As above. Lab Data MDM Lab Attestation statement: I reviewed the patient's lab results. 08/11/22 21:19 Labs: Lab Results 08/11/22 08/11/22 08/11/22 Range/Units 21:19 21:19 21:54 WBC 10.0 (4.8-10.8) X10*3/uL RBC 3.87 L (4.20-5.50) X10*6/uL Hgb 12.0 (12.0-16.0) g/dl Hct 34.4 L (37.0-47.0) % MCV 88.9 (80.0-98.0) fL MCH 31.0 (27.0-33.0) pg MCHC 34.9 (31.0-35.0) g/dl RDW 12.6 (11.0-16.0) % Plt Count 315 (160-400) X10*3/uL MPV 9.4 (9.4-12.3) fL Immature Gran % (Auto) 0.3 (0.0-0.4) % Neut % (Auto) 75.7 H (45-73) % Lymph % (Auto) 15.2 L (20-40) % [place] % (Auto) 6.6 (2-11) % Eos % (Auto) 1.8 (0-4) % Baso % (Auto) 0.4 (0-2) % Lymph # (Auto) 1.5 (1.2-4.9) X10*3/uL [place] # (Auto) 0.7 (0.1-1.2) X10*3/uL Eos # (Auto) 0.2 (0.0-0.4) X10*3/uL Baso # (Auto) 0.0 (0.0-0.2) X10*3/uL Abs Immat Gran (auto) 0.03 (0.00-0.03) X10*3/uL Absolute Neuts (auto) 7.5 (2.0-8.3) x10*3/uL Absolute Nucleated RBC 0.000 (0.0-0.012) X10*3/uL Nucleated RBC % (auto) 0.0 (0.0-0.2) /100WBC PT (10.0-13.1) SEC INR (0.9-1.1) Sodium 138 (135-145) mmol/L Potassium 3.8 (3.3-5.1) mmol/L Chloride 108 (96-108) mmol/L Carbon Dioxide 22 (22-29) mmol/L Anion Gap 12 (12-20) BUN 8 L (9-16) mg/dL Creatinine 0.63 (0.5-1.4) mg/dL Estim Creat Clear Calc 167.3 Estimated GFR > 60 Random Glucose 118 H (60-115) mg/dL Calcium 9.3 (8.4-10.2) mg/dL Magnesium 2.0 (1.6-2.6) mg/dL Total Bilirubin 0.2 (0.0-1.0) mg/dL Direct Bilirubin < 0.2 (0.0-0.5) mg/dL AST 26 (5-31) U/L ALT 42 H (0-31) U/L Alkaline Phosphatase 37 L (39-117) U/L Total Protein 7.0 (6.5-8.0) g/dL Albumin 4.1 (3.5-5.0) g/dL Beta HCG, Quant 21565 mIU/mL Urine Color Urine Appearance Urine pH (5.0-9.0) Ur Specific [place] (1.005-1.025) Urine Protein (Neg-Trace) mg/dL Urine Glucose (UA) (Negative) mg/dL Urine Ketones (Negative) mg/dL Urine Blood (Negative) Urine Nitrite (Negative) Ur Leukocyte Esterase (Negative) Urine RBC (0-2) /HPF Urine WBC (0-5) /HPF Ur Squamous Epith Cells (0-2) /HPF Urine Bacteria (None Seen) Hyaline Casts (0-2) /LPF 08/11/22 08/12/22 Range/Units 21:54 00:40 WBC (4.8-10.8) X10*3/uL RBC (4.20-5.50) X10*6/uL Hgb (12.0-16.0) g/dl Hct (37.0-47.0) % MCV (80.0-98.0) fL MCH (27.0-33.0) pg MCHC (31.0-35.0) g/dl RDW (11.0-16.0) % Plt Count (160-400) X10*3/uL MPV (9.4-12.3) fL Immature Gran % (Auto) (0.0-0.4) % Neut % (Auto) (45-73) % Lymph % (Auto) (20-40) % [place] % (Auto) (2-11) % Eos % (Auto) (0-4) % Baso % (Auto) (0-2) % Lymph # (Auto) (1.2-4.9) X10*3/uL [place] # (Auto) (0.1-1.2) X10*3/uL Eos # (Auto) (0.0-0.4) X10*3/uL Baso # (Auto) (0.0-0.2) X10*3/uL Abs Immat Gran (auto) (0.00-0.03) X10*3/uL Absolute Neuts (auto) (2.0-8.3) x10*3/uL Absolute Nucleated RBC (0.0-0.012) X10*3/uL Nucleated RBC % (auto) (0.0-0.2) /100WBC PT 10.9 (10.0-13.1) SEC INR 1.0 (0.9-1.1) Sodium (135-145) mmol/L Potassium (3.3-5.1) mmol/L Chloride (96-108) mmol/L Carbon Dioxide (22-29) mmol/L Anion Gap (12-20) BUN (9-16) mg/dL Creatinine (0.5-1.4) mg/dL Estim Creat Clear Calc Estimated GFR Random Glucose (60-115) mg/dL Calcium (8.4-10.2) mg/dL Magnesium (1.6-2.6) mg/dL Total Bilirubin (0.0-1.0) mg/dL Direct Bilirubin (0.0-0.5) mg/dL AST (5-31) U/L ALT (0-31) U/L Alkaline Phosphatase (39-117) U/L Total Protein (6.5-8.0) g/dL Albumin (3.5-5.0) g/dL Beta HCG, Quant mIU/mL Urine Color Yellow Urine Appearance Clear Urine pH 7.0 (5.0-9.0) Ur Specific [place] 1.025 (1.005-1.025) Urine Protein Negative (Neg-Trace) mg/dL Urine Glucose (UA) Negative (Negative) mg/dL Urine Ketones Negative (Negative) mg/dL Urine Blood Negative (Negative) Urine Nitrite Negative (Negative) Ur Leukocyte Esterase Small (1+) H (Negative) Urine RBC 0-2 (0-2) /HPF Urine WBC 6-10 H (0-5) /HPF Ur Squamous Epith Cells 11-20 (0-2) /HPF Urine Bacteria 2+ (None Seen) Hyaline Casts 0-2 (0-2) /LPF External Record Review External record reviewed: Inpatient record, Office record and Outpatient record Prescription Management I considered prescription management with: Pain Medication and Antibiotic Discharge Plan Discharge Clinical Impression: Urinary tract infection Patient Disposition: Home, Self-Care Instructions: Urinary Tract Infection in (ED) Additional Instructions: You have been evaluated in the emergency department today for headache. Your evaluation did not show evidence of medical conditions requiring emergent intervention at this time, and your pain improved with medication in the ED. We recommend you take Tylenol 650 mg every 6 hours as needed for pain. Your urine shows signs of infection, and you are being prescribed an antibiotic. Take the full course of medication as prescribed. Please follow-up with your WAREHOUSE PRICING AND INVENTORY CLERK within 2 days. Return to the emergency department if you experience worsening or uncontrolled pain, vision changes, recurrent vomiting, difficulty with normal activities, abnormal behavior, difficulty walking, numbness, weakness, or any other concerning symptoms. Prescriptions: New cephalexin 500 mg capsule 500 mg PO QID 7 Days Qty: 28 0RF No Action celebrate bariatric MVI PO DAILY Celebrate Walt+D PO BID
[2022-08-11 19:43] VITALS: BP 125/68; PULSE 71; RESP 16; TEMP 36.7; O2SAT 99; BMI 41.1
[2022-08-11 21:52] LABS: Alanine Aminotransferase 42 U/L (0-31); Albumin Level 4.1 g/dL (3.5-5.0); Alkaline Phosphatase 37 U/L (39-117); Anion Gap 12 (12-20); Aspartate Amino Transferase 26 U/L (5-31); Bilirubin Direct < 0.2 mg/dL (0.0-0.5); Bilirubin Total 0.2 mg/dL (0.0-1.0); Blood Urea Nitrogen 8 mg/dL (9-16); Calcium 9.3 mg/dL (8.4-10.2); Carbon Dioxide 22 mmol/L (22-29); Chloride 108 mmol/L (96-108); Creatinine Clr Calc Pharmacy 167.3; Estimated Glomerular Filt Rate > 60; Glucose Random 118 mg/dL (60-115); Potassium 3.8 mmol/L (3.3-5.1); Sodium 138 mmol/L (135-145)
[2022-08-11 21:58] LABS: MANUAL DIFF FLAG NO
[2022-08-11 21:59] LABS: Basophils Percent Auto 0.4 % (0-2); Eosinophils Absolute Auto 0.2 X10*3/uL (0.0-0.4); Eosinophils Percent Auto 1.8 % (0-4); Hematocrit 34.4 % (37.0-47.0); Imm Gran Abs Auto 0.03 X10*3/uL (0.00-0.03); Imm Gran Pct Auto 0.3 % (0.0-0.4); Lymphocytes Absolute Auto 1.5 X10*3/uL (1.2-4.9); Lymphocytes Percent Auto 15.2 % (20-40); Mean Corpuscular HGB Conc 34.9 g/dl (31.0-35.0); Mean Corpuscular Volume 88.9 fL (80.0-98.0); Mean Platelet Volume 9.4 fL (9.4-12.3); Monocytes Absolute Auto 0.7 X10*3/uL (0.1-1.2); Monocytes Percent Auto 6.6 % (2-11); Neutrophils Absolute Auto 7.5 x10*3/uL (2.0-8.3); Neutrophils Percent Auto 75.7 % (45-73); Platelet Count 315 X10*3/uL (160-400); Red Blood Count 3.87 X10*6/uL (4.20-5.50); Red Cell Distribution Width 12.6 % (11.0-16.0)
[2022-08-11 22:06] LABS: Prothrombin Time 10.9 SEC (10.0-13.1)
[2022-08-11] MEDS: 0.9 % Sodium Chloride 1,000 ML 999 ML IV (22:58)
[2022-08-11] MEDS: Metoclopramide HCl 10 MG/2 ML VIAL IVPUSH (23:04)
[2022-08-11] MEDS: diphenhydrAMINE HCL 50 MG/ML VIAL 25 MG IVPUSH (23:04)
[2022-08-12 00:12] VITALS: BP 118/67; PULSE 81; RESP 16; TEMP 37.3; O2SAT 100
[2022-08-12 01:00] LABS: Appearance Urine Clear; Color Urine Yellow; Glucose Urine UA Negative (Negative); Leukocyte Esterase Urine Small (1+) (Negative); Nitrite Urine Negative (Negative); Specific Gravity - Urine 1.025 (1.005-1.025); UMIC TRIGGER UACC YES; Urine Blood Negative (Negative); Urine Ketones Negative (Negative); Urine Protein Negative (Neg-Trace)
[2022-08-12 01:03] LABS: Bacteria Urine 2+ (None Seen); Hyaline Casts Urine 0-2 /LPF (0-2); RBC Urine 0-2 /HPF (0-2); UACC Culture Trigger YES
== END 2022-08-12 01:26 | disposition home or self-care (01) ==
PROVIDERS: Physician Assistant; Emergency Provider Emergency Medicine; PCP Internal Medicine
DX: N39.0 Urinary tract infection, site not specified (principal); R51.9 Headache, unspecified; R20.0 Anesthesia of skin; R11.2 Nausea with vomiting, unspecified; Z98.84 Bariatric surgery status; Z79.899 Other long term (current) drug therapy
CPT/HCPCS: 36415; 80048; 80076; 81001; 81003; 83735; 84702; 85025; 85610; 87086; 96361; 96374; 96375; 99284; J1200; J2765

== ENCOUNTER 2022-12-11 03:43 | Emergency (ER) | payer OTHER, SELFPAY ==
--- NOTE | ~2022-12-11 | US_ITS ---
EXAMINATION: US ABDOMEN LIMITED CLINICAL INFORMATION: Right-sided pain for one week. COMPARISON: None available. TECHNIQUE: Real-time imaging of the right upper quadrant abdominal viscera. FINDINGS: PANCREAS: Visualized portions unremarkable; body and tail obscured by bowel gas. LIVER: Normal. The liver is normal in size. The liver contour is normal. Parenchymal echogenicity is normal. No focal hepatic lesion. There is no intrahepatic biliary duct dilatation seen. GALLBLADDER: Sludge present within the gallbladder. No gallbladder wall thickening or pericholecystic fluid/inflammation. Sonographic Voss sign is positive. COMMON BILE DUCT: Normal in caliber measuring 0.5 cm in diameter. RIGHT KIDNEY: Normal. No hydronephrosis. No renal calculi or focal parenchymal lesions. The kidney measures 10.9 cm in maximum dimension. FREE FLUID: None. US/US abdomen limited IMPRESSION: * No acute findings within the abdomen to explain the patient's symptomatology. * Sludge present within the gallbladder. No sonographic evidence of cholecystitis.
[2022-12-11 03:56] VITALS: BP 122/65; PULSE 79; RESP 18; TEMP 36.1; O2SAT 99; BMI 39.6
[2022-12-11 04:32] VITALS: BP 128/43; PULSE 73; RESP 18; TEMP 36.8; O2SAT 99
--- NOTE | 2022-12-11 04:49 | PC.NURSE ---
this rn assumed care of pt from waiting room @ [id number]. dr nguyen made aware of pt condition. loading unit operator crimping attempting to obtain CT report from [facility] taken at 2200pm 12/10/22
--- NOTE | 2022-12-11 05:08 | ED.ABDPAIN ---
HPI - Abdominal Pain General Chief Complaint: Abdominal Pain Stated Complaint: Abdominal pain Time Seen by Provider: 12/11/22 04:56 Source: patient Mode of arrival: ambulatory Limitations: no limitations History of Present Illness HPI narrative: Patient otherwise healthy status post 11/20 comes here for pain in epigastric and right upper quadrant for last 1 week off and on woke up from the sleep with pain nausea vomited [address] scan of the abdomen yesterday as outpatient by PCP results pending no labs were done. No fever no urinary complaints pain gets worse after eating food pain is much improved now no vomiting at this time Related Data Home Medications Medication Instructions Recorded Confirmed Celebrate Walt+D PO BID 06/24/21 06/24/21 celebrate bariatric MVI PO DAILY 06/24/21 06/24/21 Previous Rx's Medication Instructions Recorded cephalexin 500 mg capsule 500 mg PO QID 7 days #28 caps 08/12/22 cefuroxime axetil 250 mg tablet 250 mg PO BID 7 days #14 tabs 12/11/22 tramadol 50 mg tablet 50 mg PO Q6H PRN pain #20 tabs 12/11/22 Allergies Allergy/AdvReac Type Severity Reaction Status Date / Time latex Allergy Rash Verified 10/03/20 18:45 Review of Systems Review of Systems Yes all other systems are reviewed and are negative PMFSH Past Medical History Medical History PCOS (polycystic ovarian syndrome) Surgical History Obesity History of sleeve gastrectomy Family History Family History Father No problems noted. Mother Poor mental health Brother No problems noted. Sister No problems noted. Sister No problems noted. Sister No problems noted. Social History Social History Alcohol intake: never Advance Directives: No Advance Directives Information Provided: No Physical Exam ED Vital Signs: Vital Signs - 24 hr 12/11/22 03:56 12/11/22 04:32 12/11/22 06:21 Temperature 97 F 98.3 F Pulse Rate 79 73 62 Respiratory Rate 18 18 19 Blood Pressure 122/65 128/43 L 120/73 Pulse Oximetry 99 99 99 Oxygen Delivery Method Room Air Room Air Room Air BMI result Body Mass Index 39.6 Appearance: Alert. Oriented X3. No acute distress. Eyes: No pallor or icterus ENT: Pharynx normal. Oral Mucosa moist Neck: Normal inspection. Neck supple. CVS: Normal heart rate and rhythm. Pulses normal. Respiratory: No respiratory distress. Equal air entry bilateral, no wheezing/rales/rhonchi Abdomen: Soft mild deep tenderness right upper quadrant no rebound or guarding Bowel sounds are present, no mass palpable, no CVA tenderness Skin: Skin warm and dry. Normal skin color. Normal skin turgor. Extremities: No lower extremity edema. No calf tenderness Neuro: Oriented X 3. Medical Decision Making Medical Decision Making [facility] Narrative: Patient with right upper quadrant pain off and on ultrasound showed gallbladder sludge likely the cause. Also she has wbc's in the urine likely UTI will discharge patient home on Ceftin patient is pain-free at this time Differential Diagnosis Differential Diagnoses: The differential diagnosis associated with the presentation includes UTI/cholecystitis/kidney stone/pyelonephritis Lab Data [facility] Lab Attestation statement: I reviewed the patient's lab results. 12/11/22 05:10 12/11/22 05:10 Labs: Lab Results 12/11/22 12/11/22 Range/Units 05:10 05:58 WBC 8.8 (4.8-10.8) X10*3/uL RBC 4.15 L (4.20-5.50) X10*6/uL Hgb 11.9 L (12.0-16.0) g/dl Hct 35.7 L (37.0-47.0) % MCV 86.0 (80.0-98.0) fL MCH 28.7 (27.0-33.0) pg MCHC 33.3 (31.0-35.0) g/dl RDW 11.9 (11.0-16.0) % Plt Count 454 H D (160-400) X10*3/uL MPV 8.9 L (9.4-12.3) fL Immature Gran % (Auto) 0.2 (0.0-0.4) % Neut % (Auto) 72.3 (45-73) % Lymph % (Auto) 16.7 L (20-40) % [place] % (Auto) 7.8 (2-11) % Eos % (Auto) 2.4 (0-4) % Baso % (Auto) 0.6 (0-2) % Lymph # (Auto) 1.5 (1.2-4.9) X10*3/uL [place] # (Auto) 0.7 (0.1-1.2) X10*3/uL Eos # (Auto) 0.2 (0.0-0.4) X10*3/uL Baso # (Auto) 0.1 (0.0-0.2) X10*3/uL Abs Immat Gran (auto) 0.02 (0.00-0.03) X10*3/uL Absolute Neuts (auto) 6.3 (2.0-8.3) x10*3/uL Absolute Nucleated RBC 0.000 (0.0-0.012) X10*3/uL Nucleated RBC % (auto) 0.0 (0.0-0.2) /100WBC Sodium 141 (135-145) mmol/L Potassium 4.2 (3.3-5.1) mmol/L Chloride 107 (96-108) mmol/L Carbon Dioxide 23 (22-29) mmol/L Anion Gap 15 (12-20) BUN 12 (9-16) mg/dL Creatinine 0.91 (0.5-1.4) mg/dL Estim Creat Clear Calc 113.4 Estimated GFR > 60 Random Glucose 99 (60-115) mg/dL Calcium 9.5 (8.4-10.2) mg/dL Total Bilirubin 0.3 (0.0-1.0) mg/dL AST 22 (5-31) U/L ALT 17 (0-31) U/L Alkaline Phosphatase 64 (39-117) U/L Total Protein 7.1 (6.5-8.0) g/dL Albumin 4.2 (3.5-5.0) g/dL Lipase 36 (8-78) U/L Urine Color Yellow Urine Appearance Clear Urine pH 6.0 (5.0-9.0) Ur Specific [place] >= 1.030 H (1.005-1.025) Urine Protein Negative (Neg-Trace) mg/dL Urine Glucose (UA) Negative (Negative) mg/dL Urine Ketones Negative (Negative) mg/dL Urine Blood Moderate (2+) H (Negative) Urine Nitrite Negative (Negative) Ur Leukocyte Esterase Moderate (2+) H (Negative) Urine RBC 0-2 (0-2) /HPF Urine WBC 21-50 H (0-5) /HPF Ur Squamous Epith Cells 6-10 (0-2) /HPF Urine Bacteria 1+ (None Seen) Hyaline Casts 0-2 (0-2) /LPF Discharge Plan Discharge Clinical Impression: UTI (urinary tract infection), Gallbladder sludge Patient Disposition: Home, Self-Care Instructions: Biliary Colic (ED), Urinary Tract Infection in Women (ED) Additional Instructions: Avoid fried food Antibiotic as prescribed for bladder infection Follow-up with surgeon if pain continue or get worse for further evaluation including HIDA scan Prescriptions: New cefuroxime axetil 250 mg tablet 250 mg PO BID 7 Days Qty: 14 0RF tramadol 50 mg tablet 50 mg PO Q6H PRN (Reason: pain) Qty: 20 0RF No Action cephalexin 500 mg capsule 500 mg PO QID 7 Days Qty: 28 0RF celebrate bariatric MVI PO DAILY Celebrate Walt+D PO BID Referrals: Monico Clark MD [Physician] - 1 week Interventions: LWBS Worksheet Last Done: 12/11/22 04:05
[2022-12-11 05:14] LABS: Basophils Absolute Auto 0.1 X10*3/uL (0.0-0.2); Basophils Percent Auto 0.6 % (0-2); Eosinophils Absolute Auto 0.2 X10*3/uL (0.0-0.4); Eosinophils Percent Auto 2.4 % (0-4); Hematocrit 35.7 % (37.0-47.0); Hemoglobin 11.9 g/dl (12.0-16.0); Imm Gran Abs Auto 0.02 X10*3/uL (0.00-0.03); Imm Gran Pct Auto 0.2 % (0.0-0.4); Lymphocytes Absolute Auto 1.5 X10*3/uL (1.2-4.9); Lymphocytes Percent Auto 16.7 % (20-40); MANUAL DIFF FLAG NO; Mean Corpuscular HGB Conc 33.3 g/dl (31.0-35.0); Mean Corpuscular Hemoglobin 28.7 pg (27.0-33.0); Mean Platelet Volume 8.9 fL (9.4-12.3); Monocytes Absolute Auto 0.7 X10*3/uL (0.1-1.2); Monocytes Percent Auto 7.8 % (2-11); Neutrophils Absolute Auto 6.3 x10*3/uL (2.0-8.3); Neutrophils Percent Auto 72.3 % (45-73); Platelet Count 454 X10*3/uL (160-400); Red Blood Count 4.15 X10*6/uL (4.20-5.50); Red Cell Distribution Width 11.9 % (11.0-16.0); White Blood Count 8.8 X10*3/uL (4.8-10.8)
[2022-12-11 05:34] LABS: Alanine Aminotransferase 17 U/L (0-31); Albumin Level 4.2 g/dL (3.5-5.0); Alkaline Phosphatase 64 U/L (39-117); Anion Gap 15 (12-20); Aspartate Amino Transferase 22 U/L (5-31); Bilirubin Total 0.3 mg/dL (0.0-1.0); Blood Urea Nitrogen 12 mg/dL (9-16); Calcium 9.5 mg/dL (8.4-10.2); Carbon Dioxide 23 mmol/L (22-29); Chloride 107 mmol/L (96-108); Creatinine Clr Calc Pharmacy 113.4; Estimated Glomerular Filt Rate > 60; Glucose Random 99 mg/dL (60-115); Lipase 36 U/L (8-78); Potassium 4.2 mmol/L (3.3-5.1); Sodium 141 mmol/L (135-145); Total Protein 7.1 g/dL (6.5-8.0)
--- NOTE | 2022-12-11 05:59 | PC.NURSE ---
urine sample obtained and sent down to lab
[2022-12-11 06:17] LABS: Appearance Urine Clear; Color Urine Yellow; Glucose Urine UA Negative (Negative); Leukocyte Esterase Urine Moderate (2+) (Negative); Nitrite Urine Negative (Negative); Specific Gravity - Urine >= 1.030 (1.005-1.025); UMIC TRIGGER UACC YES; Urine Blood Moderate (2+) (Negative); Urine Ketones Negative (Negative); Urine Protein Negative (Neg-Trace)
[2022-12-11 06:21] VITALS: BP 120/73; PULSE 62; RESP 19; O2SAT 99
[2022-12-11 06:27] LABS: Bacteria Urine 1+ (None Seen); Hyaline Casts Urine 0-2 /LPF (0-2); RBC Urine 0-2 /HPF (0-2); UACC Culture Trigger YES; WBC Urine 21-50 /HPF (0-5)
--- NOTE | 2022-12-11 07:04 | PC.NURSE ---
pt medicated according to mar. pt calm and cooperative. pt denies pain at this time. pt ambulatory at discharge. pt provided with discharge packet. pt verbalized understanding of discharge plan
== END 2022-12-11 07:05 | disposition home or self-care (01) ==
PROVIDERS: Emergency Provider Internal Medicine
DX: N39.0 Urinary tract infection, site not specified (principal); K80.50 Calculus of bile duct without cholangitis or cholecystitis without obstruction; E66.9 Obesity, unspecified; Z68.39 Body mass index [BMI] 39.0-39.9, adult
CPT/HCPCS: 36415; 76705; 80053; 81001; 83690; 85025; 87086; 99284